=== PATIENT | male | born 1990 ===

== ENCOUNTER 2019-10-03 18:22 | Emergency (ER) | payer SELFPAY ==
--- NOTE | 2019-10-03 18:24 | CTR_ITS ---
PROCEDURE INFORMATION: Exam: CT Head Without Contrast Exam date and time: 10/03/2019 6:45 PM Age: 29 years old Clinical indication: Condition or disease; Convulsions or seizures; Unspecified; Patient HX: Witnessed seizure - forehead lac TECHNIQUE: Imaging protocol: Computed tomography of the head without contrast. Axial, coronal and sagittal reformatted images were created and reviewed. Radiation optimization: All CT scans at this facility use at least one of these dose optimization techniques: automated exposure control; mA and/or kV adjustment per patient size (includes targeted exams where dose is matched to clinical indication); or iterative reconstruction. COMPARISON: No relevant prior studies available. RADIATION DOSE METRICS: Total DLP (mGy-cm): 848.01 FINDINGS: Brain: No CT evidence of acute intracranial hemorrhage or acute territorial infarction. No significant mass effect or midline shift. Basal cisterns patent. Ventricles: Normal in size and configuration. Bones/joints: No acute osseous abnormality. Sinuses: Grossly unremarkable. Mastoid air cells: Grossly unremarkable. Soft tissues: Left prefrontal soft tissue injury. CT/CT head wo con* [id number] IMPRESSION: 1. No CT evidence of acute intracranial pathology. 2. Additional findings, as above. Radiation Dose CTDIVOL = (mGy): DLP = 848.01 (mGy-cm)
--- NOTE | 2019-10-03 18:25 | ECG_ITS ---
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 Measurements Intervals [place] Rate: 106 P: 261 IN: 113 QRS: 35 QRSD: 180 T: 47 QT: 431 QTc: 575 Interpretive Statements Sinus tachycardia RIGHT BUNDLE BRANCH BLOCK [120+ ms QRS DURATION, UPRIGHT V1, 40+ ms S IN I/aVL/V4/V5/V6] No previous ECG available for comparison Electronically Signed On 10-04-2019 12:01:25 CDT by James Walden M.D. [id number]
--- NOTE | 2019-10-03 18:29 | W.ED.SEIZURE ---
HPI - Seizure General: Chief Complaint: Seizure Stated Complaint: SEIZURE Time Seen by Provider: 10/03/19 18:24 Source: patient and EMS Mode of arrival: EMS Limitations: no limitations History of Present Illness: HPI Narrative: 29-year-old male who had a seizure just prior to arrival. Per EMS seizure lasted 2 to 3 minutes and patient was postictal. He states he had one seizure in the past. He states he was in the house and it was witnessed by his . He did strike his head and has a laceration to his forehead. He denies any chest pain. MD complaint: seizure Onset (ago): minute(s) Associated symptoms: Deny chest pain, chills or fever(s) Review of Systems Const: Denies: fever(s), chills, body aches or change in appetite Eyes: Denies: blurry vision or eye discomfort ENMT: Denies: throat pain or dental pain Card: Denies: chest pain Resp: Denies: dyspnea GI: Denies: abdominal pain, nausea, vomiting or diarrhea : Denies: dysuria Musc: Denies: neck pain or back pain Skin/Breast: Denies: rash Neuro: Reports: headache(s) and seizure-like activity Psych: Denies: depression Efraín/Lymph: Denies: easy bruising All/Imm: Denies: urticaria Physical Exam Const: COMMON NORMALS: no acute distress, patient oriented x3 and healthy appearing HENMT: COMMON NORMALS: normocephalic HEAD & SCALP: normocephalic OTHER: 2cm laceration to left forehead Eye: COMMON NORMALS: Equal, round and reactive pupils present and EOMs intact bilaterally PUPIL: Yes Equal, round and reactive pupils present Neck/C-Spine: COMMON NORMALS: full ROM and supple Chest: COMMONS NORMALS: normal inspection of the chest and normal palpation of entire chest wall Resp: COMMON NORMALS: normal respiratory effort, No retractions, No use of accessory muscles and clear to auscultation bilaterally AUSCULTATION: clear to auscultation bilaterally Cardio: COMMON NORMALS: regular rate, regular rhythm and No murmurs present (Cardio) RATE: regular rate RHYTHM: regular rhythm GI: COMMON NORMALS: Normal to inspection, nondistended, normoactive bowel sounds present, Soft to palpation, non-tender and no masses PALPATION: Yes Soft to palpation Extremity: COMMON NORMALS: normal to inspection and full ROM Neuro: COMMON NORMALS: patient oriented x3, moves all extremities and no focal motor deficits Psych: COMMON NORMALS: mental status grossly normal, Normal thought process present and cooperative THOUGHT PROCESS: Normal thought process present Skin: COMMON NORMALS: no rashes or lesions noted and no wounds GENERAL SKIN EXAM: no rashes or lesions noted Procedures Laceration Laceration 1: Site: face Side (If applicable): left Size (cm): 2 Description: linear Depth: simple, single layer Local Anesthetic: lidocaine 1% Amount of anesthesia used (mL): 5 Pre-repair: wound explored, irrigated extensively and deep structures intact Skin layer closed with: nylon Size (cm): 6-0 Number of sutures: 3 Technique: simple, interrupted Course Vital Signs: Vital signs: Vital Signs Pulse Rate 105 H 10/03/19 18:30 Respiratory Rate 17 10/03/19 18:30 Blood Pressure 169/95 10/03/19 18:30 Pulse Oximetry 99 10/03/19 18:30 MDM - Seizure MDM Narrative: Medical decision making narrative: Patient presents here with head laceration from a fall and seizure. This is a second seizure he has had and I will start him on Keppra. We will get him follow-up with a PCP along with a neurologist. Patient is to return in 1 week for suture removal. Patient's otherwise well-appearing. Patient is stable for discharge. Lab Data: Labs: Lab Results 10/03/19 10/03/19 Range/Units 18:55 18:55 WBC 9.7 (4.0-10.0) 10^3/ uL RBC 5.22 (4.1-5.3) 10^6/u L Hgb 16.9 H (11.7-16.6) g/dL Hct 50.2 (42.0-52.0) % MCV 96.2 H (80-94) fL MCH 32.4 (28.0-34.0) pg MCHC 33.7 (30.0-36.0) g/dL RDW 12.1 (12.1-15.1) % Plt Count 258 (130-400) 10^3/c mm MPV 9.9 (7.4-10.4) fL Neut % (Auto) 51.7 % Lymph % (Auto) 37.0 % [place] % (Auto) 9.3 % Eos % (Auto) 0.0 % Baso % (Auto) 0.5 % Neut # (Auto) 5.03 (1.8-7.7) 10^3/u L Lymph # (Auto) 3.6 (0.8-4.8) 10^3/u L [place] # (Auto) 0.9 (0.2-0.9) 10^3/u L Eos # (Auto) 0.0 (0.0-0.8) 10^3/u L Baso # (Auto) 0.1 (0.0-0.1) 10^3/u L Nucleated RBC % (a uto) 0 % Nucleated RBCs # 0.0 /100WBC Sodium 136 (136-145) mmol/L Potassium 3.2 L (3.5-5.1) mmol/L Chloride 96 L (98-107) mmol/L Carbon Dioxide 23 (22-29) mmol/L Anion Gap 20.2 H (5-19) BUN 8 (6-20) mg/dL Creatinine 1.2 (0.7-1.2) mg/dL GFR Calculation 71.1 L (90-130) mL/min Glucose 129 H (65-115) mg/dL Calculated Osmolal ity 280 L (285-295) mOsm/k g Calcium 8.0 L (8.5-10.5) mg/dL Total Bilirubin 0.7 (0.15-1.2) mg/dL AST 22 (0-40) U/L ALT 17 (0-41) U/L Alkaline Phosphata se 84 (40-130) IU/L Total Protein 8.0 (6.6-8.7) g/dL Albumin 5.2 (3.5-5.2) g/dL Globulin 2.8 (1.3-4.6) g/dL Imaging Data^: CT Head: Radiologist's impression: [address] [place] [address] CT Scan Report Signed Patient: Stephan June Unit #: [id number] : 1990 Age/Sex: 29 / M ADM Date: 10/03/19 Loc: ER Room/Bed: Attending Dr: Ordering Provider/Ordering MD: Anjum Villanueva MD Date of Service: 10/03/19 Procedure(s): CT head wo con* [id number] Accession Number(s): [id number] Report Number: [id number] PROCEDURE INFORMATION: Exam: CT Head Without Contrast Exam date and time: 10/03/2019 6:45 PM Age: 29 years old Clinical indication: Condition or disease; Convulsions or seizures; Unspecified; Patient HX: Witnessed seizure - forehead lac TECHNIQUE: Imaging protocol: Computed tomography of the head without contrast. Axial, coronal and sagittal reformatted images were created and reviewed. Radiation optimization: All CT scans at this facility use at least one of these dose optimization techniques: automated exposure control; mA and/or kV adjustment per patient size (includes targeted exams where dose is matched to clinical indication); or iterative reconstruction. COMPARISON: No relevant prior studies available. RADIATION DOSE METRICS: Total DLP (mGy-cm): 848.01 FINDINGS: Brain: No CT evidence of acute intracranial hemorrhage or acute territorial infarction. No significant mass effect or midline shift. Basal cisterns patent. Ventricles: Normal in size and configuration. Bones/joints: No acute osseous abnormality. Sinuses: Grossly unremarkable. Mastoid air cells: Grossly unremarkable. Soft tissues: Left prefrontal soft tissue injury. CT/CT head wo con* [id number] IMPRESSION: 1. No CT evidence of acute intracranial pathology. 2. Additional findings, as above. EKG Data^: EKG 1: Attestation: I personally reviewed and interpreted this EKG as follows: EKG interpretation date: 10/03/19 EKG interpretation time: 18:41 Interpretation: tachy hr [address] or t wave elevation. no brugada Discharge Plan Discharge Patient Disposition: Home Clinical Impression: Generalized seizure Laceration of head Qualifiers: Encounter type: initial encounter Location of open wound of head: unspecified part of head Foreign body presence: without foreign body Qualified Code(s): S01.91XA - Laceration without foreign body of unspecified part of head, initial encounter Condition: Stable Prescriptions: New Keppra 500 mg tablet 500 mg PO BID Qty: 60 RF: 0 Discharge Orders: Discharge Order (Routine); Ordered 10/03/19 Ordered By: Anjum Villanueva Referrals: Liat James MD [Physician] - Discharge Diet: Advance as tolerated Discharge Activity: Resume usual activity Patient Instructions: Seizures Coding Level of Care Code ED Camera Tuning Engineer for Chg Fwd Exam Comprehensive
[2019-10-03 18:30] VITALS: BP 169/95; PULSE 105; RESP 17; O2SAT 99; BMI 23.3
[2019-10-03 18:59] LABS: Basophils # 0.1 10^3/uL (0.0-0.1); Basophils % 0.5 %; Hematocrit 50.2 % (42.0-52.0); Hemoglobin 16.9 g/dL (11.7-16.6); Lymphocytes # 3.6 10^3/uL (0.8-4.8); Mean Corpuscular HGB Conc 33.7 g/dL (30.0-36.0); Mean Corpuscular Hemoglobin 32.4 pg (28.0-34.0); Mean Corpuscular Volume 96.2 fL (80-94); Mean Platelet Volume 9.9 fL (7.4-10.4); Monocytes # 0.9 10^3/uL (0.2-0.9); Monocytes % 9.3 %; Neutrophils # 5.03 10^3/uL (1.8-7.7); Neutrophils % 51.7 %; Nucleated Red Blood Cells % 0 %; Platelet Count 258 10^3/cmm (130-400); Red Blood Count 5.22 10^6/uL (4.1-5.3); Red Cell Distribution Width 12.1 % (12.1-15.1); White Blood Count 9.7 10^3/uL (4.0-10.0)
[2019-10-03 19:17] LABS: Alanine Aminotransferase 17 U/L (0-41); Albumin Level 5.2 g/dL (3.5-5.2); Alkaline Phosphatase 84 IU/L (40-130); Anion Gap 20.2 (5-19); Aspartate Amino Transferase 22 U/L (0-40); Blood Urea Nitrogen 8 mg/dL (6-20); Carbon Dioxide 23 mmol/L (22-29); Chloride 96 mmol/L (98-107); Globulin 2.8 g/dL (1.3-4.6); Glomerular Filtration Rate 71.1 mL/min (90-130); Glucose 129 mg/dL (65-115); Osmolality Calculated 280 mOsm/kg (285-295); Potassium 3.2 mmol/L (3.5-5.1); Sodium 136 mmol/L (136-145); Total Bilirubin 0.7 mg/dL (0.15-1.2)
[2019-10-03 20:17] VITALS: BP 128/79; PULSE 72; RESP 16; O2SAT 99
--- NOTE | 2019-10-05 12:53 | DCPLANNER ---
manager medicare marketing had message to speak with patient about getting a primary care physician. manager medicare marketing spoke with patient about getting a physician, patient stated that he did not want one at this time, he was getting ready to leave this area.
--- NOTE | 2019-10-10 09:45 | PC.NURSE ---
Veronica Acosta SUPERVISOR ESTIMATOR AND DRAFTER assessed pts suture site. I removed 3 sutures from pts left eyebrow. wound was clean and no redness noted at this time.
== END 2019-10-03 20:28 | disposition home or self-care (01) ==
PROVIDERS: Emergency Provider Emergency Medicine
DX: G40.89 Other seizures (principal); S01.81XA Laceration without foreign body of other part of head, initial encounter; W19.XXXA Unspecified fall, initial encounter
CPT/HCPCS: 12011; 12345; 70450; 80053; 85025; 93005; 99283; 99284